=== PATIENT | male | born 1980 | race Two or more races ===

== ENCOUNTER → 2024-11-07 13:29 | Outpatient (REF) | payer OTHER, SELFPAY ==
[2024-11-07 14:18] LABS: % Basophils 0.7 % (0-2); % Eosinophils 1.4 % (0-6); % Immature Granulocytes 0.5 % (0-0.5); % Lymphocytes 30.4 % (20.5-51.1); % Monocytes 6.9 % (1.7-9.3); % Neutrophils 60.1 % (42.2-75.2); Absolute Basophils 0.1 10^3/uL (0-0.2); Absolute Eosinophils 0.1 10^3/uL (0-0.7); Absolute Lymphocytes 2.7 10^3/uL (1.2-3.4); Absolute Monocytes 0.6 10^3/uL (0.1-0.6); Absolute Neutrophils 5.3 10^3/uL (1.4-6.5); Hemoglobin 15.3 g/dL (13.0-18.0); Mean Corp Hgb Conc. 35.6 g/dL (33.0-37.0); Mean Corpuscular Hgb 31.4 pg (27.0-31.0); Mean Corpuscular Volume 88.1 fL (80.0-94.0); Mean Platelet Volume 10.6 fL (7.4-10.4); Nucleated Red Blood Cells % 0 % (-); Platelet Count 278 10^3/uL (130-400); Red Blood Cell Count 4.88 10^6/uL (4.70-6.10); Red Cell Dist. Width 11.7 % (11.5-14.5); White Blood Cell Count 8.8 10^3/uL (4.8-10.8)
[2024-11-07 15:10] LABS: ALT (SGPT) 20 U/L (0-50); AST (SGOT) 22 U/L (17-59); Albumin 5.1 g/dl (3.5-5.0); Alkaline Phosphatase 94 U/L (38-126); Blood Urea Nitrogen 16 mg/dl (9-20); Calcium 9.3 mg/dl (8.4-10.2); Carbon Dioxide 30 mmol/L (22-30); Chloride 100 mmol/L (98-107); Glucose 100 mg/dl (70-99); HDL Cholesterol 49 mg/dl; LDL Cholesterol, Calculated 151 mg/dl; Potassium 4.4 mmol/L (3.5-5.1); Sodium 140 mmol/L (135-145); Total Bilirubin 1.1 mg/dl (0.2-1.3); Total Cholesterol 229 mg/dl (50-199); Total Protein 8.5 g/dl (6.3-8.2); Triglyceride 146 mg/dl (10-149); Very Low Density Lipoprotein 29 mg/dl (0-30); eGFR > 60.00
== END ==
LOC: REG 13:29
PROVIDERS: ATTENDING PHYSICIAN Nurse Practitioner Family
DX: Z00.01 Encounter for general adult medical examination with abnormal findings (principal)
CPT/HCPCS: 36415; 80053; 80061; 85025

== ENCOUNTER 2025-03-21 10:44 | Emergency (ER) | payer SELFPAY ==
[2025-03-21 10:51] VITALS: BP 137/89
--- NOTE | 2025-03-21 10:56 | ED.GENMED ---
History of Present Illness
General
Chief Complaint: Musculo-Skeletal Complaint
Source: patient
Exam Limitations: none
Time Seen by Provider: 03/21/25 10:53
Nursing documentation reviewed up to this point in time: agreed with
History of Present Illness
History of Present Illness:
Patient is a 45-year-old male who presents to the emergency department for evaluation of left ankle injury. Patient states he was playing soccer around 9 PM last night when he fell inverting his left ankle and then unfortunately another player fell
onto the patients ankle, causing it to twist under the weight of the players body. The patient was assisted to get up as he could not do it by himself. Since the incident, he has been unable to bear weight on the affected ankle and describes the
pain as severe and all-encompassing, with a focus of tenderness on the inner aspect of the ankle. Patient denies any numbness/tingling of left foot/toes. He denies any head strike or other associated injuries.
Patient was seen at the [facility] earlier today and referred to the emergency department for x-ray imaging.
Review of Systems
Review of Systems
Allergies reviewed?: Yes
All Other Systems: ROS reviewed and negative except as documented in HPI and ROS
Phy Exam
Physical Exam
Physical Exam:
Vitals: Hypertensive, otherwise vital signs stable. Afebrile
General: Patient is well appearing, no acute distress
Skin: Warm and dry, no rashes or lesions
Head: Normocephalic, atraumatic
Throat: Protecting airway
Neck: Normal ROM, no cervical spine tenderness
Cardiac: Regular rate
Pulm: No apparent respiratory distress
Abdomen: Nondistended
Extremities: Diffuse edema of left ankle with tenderness just anterior to left medial malleolus. No bony tenderness of medial or lateral malleolus. No tenderness of left midfoot, hindfoot, base of fifth metatarsal. No tenderness at head of left
fibula or calcaneus. Achilles intact. Patient has full range of motion of the left knee without pain. Limited ability to plantarflex/dorsiflex left ankle secondary to pain. 2+ palpable left DP pulse and normal capillary refill. Sensation intact.
Neuro: Grossly intact
Psychiatric: Normal affect.
Course
Orders/Labs/Results
Orders:
Orders
03/21/25 10:45
Ankle, left 3 view CR [CR Ankle - Left Min 3 Views ] Urgent
Comment:
Reason For Exam: injured playing soccer
03/21/25 11:30
Crutches-Treatment ONCE
Ortho Boot Left- Treatment ONCE
Short or tall?: Tall
Vital Signs
Initial and Last Documented VS:
Initial Vital Signs
Temp Pulse Resp BP Pulse Ox
97.6 F 57 18 137/89 98
03/21/25 10:51 03/21/25 10:51 03/21/25 10:51 03/21/25 10:51 03/21/25 10:51
Last Documented Vital Signs
Temp Pulse Resp BP Pulse Ox
97.6 F 57 18 137/89 98
03/21/25 10:51 03/21/25 10:51 03/21/25 10:51 03/21/25 10:51 03/21/25 10:51
MDM/Problems Addressed
Differential Diagnosis Includes:
Not limited to: Ankle sprain, ankle fracture, Achilles tendon injury, ankle dislocation, soft tissue contusion, etc.
MDM/Problems Addressed:
The patient is a 45-year-old male who presented to the emergency department following a left ankle injury sustained during a soccer game the previous night. The patient reported being unable to bear weight due to severe pain in the affected ankle,
but he did not experience any associated head injury or other trauma. Patient mildly hypertensive on arrival to ED, otherwise stable vital signs. Physical exam as above.
X-ray of the left ankle did not show any acute fracture or dislocation. The clinical suspicion was that of an ankle sprain.
The patient will be placed in an orthopedic boot for support and, due to difficulty ambulating, crutches will be provided. Instructions for care at home include rest, ice application, elevation of the leg, and taking NSAIDs or Tylenol for pain
management. Return precautions were also discussed with the patient. The patient was advised to follow up with a free clinic for possible further orthopedic evaluation. Patient expressed verbal understanding. Stable for discharge home
Chronic conditions affecting care:
N/A
Acute Exacerbation and/or Progression of Chronic Illness:
N/A
*Radiology
Radiology exam reviewed: preliminary read by ED provider (Ankle x-ray reviewed by me-no acute fracture) and radiology read reviewed
*Pulse Oximetry
Patient hypoxic: no (98% on room air)
*EKG
Interpreted by ED Provider?: NA
*[employer] Interpretation
Rate: [employer]- N/A
*Critical Care Note
Total Time (30-74mins, 75-104mins- exclusive of procedures): Not Applicable
ED Attending Note
-
Portions of this chart may have been created with voice recognition software.� Occasional wrong word or��sound alike� substitutions may have occurred due to the inherent limitations of voice recognition software.
Discharge Plan
Departure
Patient Disposition: Home (Routine Discharge)
Date of Disposition: 03/21/25
Time of Disposition: 11:30
Patient with high blood pressure during this ER visit?: Yes
Condition: Good
Covid-19: Not Applicable
Discharge Problem:
Injury of ankle, left
Instructions: How to Use Crutches, Ankle sprain - ED discharge instructions, BLOOD PRESSURE
Referrals:
[facility] [Outside] - Follow up in 1 week
UNKNOWN - PT DOES,NOT KNOW [Family Provider]
Activity Restrictions/Additional Instructions:
RETURN TO THE EMERGENCY DEPARTMENT WITH ANY INTRACTABLE PAIN, NUMBNESS/TINGLING IN LEFT FOOT/ANKLE, WORSENING OF CURRENT SYMPTOMS, OR ANY OTHER CONCERNS
- As discussed�your x-ray showed no evidence of acute fracture of your left ankle. It is possible that you have an ankle sprain. You should keep your left ankle iced and elevated over the next few days. Wear Ortho boot until cleared by an
[facility]/orthopedics. You can use crutches to weight-bear over the next few days.
- Take Tylenol and/or Motrin as needed for pain
- Limit physical activity/sports for the next 2 to 4 weeks as symptoms improve.
- Follow-up with [facility] for further evaluation/management
Monitor your symptoms closely and return to the emergency department with any acute worsening/new symptoms or any other concerns
Interventions
Interventions:
*Risk Screen - Suicide Last Done: 03/21/25 10:47
*General Assessment Last Done: 03/21/25 10:47
*Neglect/Abuse Screening Last Done: 03/21/25 10:47
*ED COVID-19 Vaccine History Last Done: 03/21/25 10:47
*Nursing Disposition Last Done: 03/21/25 11:40
ED-Musculoskeletal Assessment Last Done: 03/21/25 11:28
Discharge Date and Time
Discharge Date/Time: 03/21/25 11:40
Print Language: HEBREW
== END 2025-03-21 11:40 | disposition home or self-care (01) ==
LOC: EMR 10:44
PROVIDERS: EMERGENCY PHYSICIAN Emergency Medicine
DX: S99.912A Unspecified injury of left ankle, initial encounter (principal); W50.0XXA Accidental hit or strike by another person, initial encounter; R03.0 Elevated blood-pressure reading, without diagnosis of hypertension; Y93.66 Activity, soccer
CPT/HCPCS: 99283; 73610